=== PATIENT | female | born 1985 | race African-American/Black ===

== ENCOUNTER 2017-09-03 15:00 | Emergency (ER) | payer MEDICAID ==
[~2017-09-03] VITALS: Ht 165.1 cm; Wt 82.8 kg
[2017-09-03 15:01] VITALS: BP 128/77
== END 2017-09-03 15:32 | disposition home or self-care (01) ==
LOC: ED 15:15
DX: Z48.01 Encounter for change or removal of surgical wound dressing (principal); E03.9 Hypothyroidism, unspecified; J45.909 Unspecified asthma, uncomplicated
CPT/HCPCS: 99283

== ENCOUNTER 2017-11-09 20:34 | Emergency (ER) | payer MEDICAID ==
[~2017-11-09] VITALS: Ht 165.1 cm; Wt 79.3 kg
[2017-11-09 20:39] VITALS: BP 123/84
[2017-11-09] MEDS ORDERED: ALBUTEROL/IPRATROPIUM 2.5MG/0.5MG, 3 ML NPPB ONE (21:00)
[2017-11-09] MEDS ORDERED: ALBUTEROL/IPRATROPIUM 2.5MG/0.5MG, 3 ML ONE (21:00)
== END 2017-11-09 21:45 | disposition home or self-care (01) ==
LOC: ED 21:39
DX: J45.41 Moderate persistent asthma with (acute) exacerbation (principal); E03.9 Hypothyroidism, unspecified
CPT/HCPCS: 71046; 93005; 94640; 99284; J7512; J7620

== ENCOUNTER 2017-12-19 17:23 | Emergency (ER) | payer MEDICAID, OTHER ==
[~2017-12-19] VITALS: Ht 165.1 cm; Wt 82.7 kg
[~2017-12-19 17:23] MED LIST: LEVO25TA4 PO; MONT4GRA PO
[2017-12-19] MEDS ORDERED: ALBUTEROL/IPRATROPIUM 2.5MG/0.5MG, 3 ML NPPB ONE (18:00)
[2017-12-19] MEDS ORDERED: ALBUTEROL/IPRATROPIUM 2.5MG/0.5MG, 3 ML ONE (18:41)
[2017-12-19 19:04] VITALS: BP 118/79
== END 2017-12-19 21:17 | disposition left against medical advice (07) ==
LOC: ED 19:16
DX: J45.901 Unspecified asthma with (acute) exacerbation (principal); J20.8 Acute bronchitis due to other specified organisms; B96.89 Other specified bacterial agents as the cause of diseases classified elsewhere
CPT/HCPCS: 71046; 93005; 94640; 99284; J7512; J7620